=== PATIENT | female | born 1975 | race Caucasian/White ===

== ENCOUNTER 2023-04-13 16:08 | Emergency (ER) | payer BC, SELFPAY ==
[2023-04-13 16:13] VITALS: BP 116/74
[2023-04-13 16:29] LABS: % Basophils 0.5 % (0-2); % Immature Granulocytes 0.2 % (0-0.5); % Lymphocytes 36.3 % (20.5-51.1); % Monocytes 9.3 % (1.7-9.3); % Neutrophils 51.7 % (42.2-75.2); Absolute Basophils 0.1 10^3/uL (0-0.2); Absolute Eosinophils 0.2 10^3/uL (0-0.7); Absolute Lymphocytes 3.4 10^3/uL (1.2-3.4); Absolute Monocytes 0.9 10^3/uL (0.1-0.6); Absolute Neutrophils 4.8 10^3/uL (1.4-6.5); Hematocrit 34.9 % (37.0-47.0); Hemoglobin 11.6 g/dL (12.0-16.0); Mean Corp Hgb Conc. 33.2 g/dL (33.0-37.0); Mean Corpuscular Hgb 28.6 pg (27.0-31.0); Mean Platelet Volume 10.3 fL (7.4-10.4); Nucleated Red Blood Cells % 0 %; Platelet Count 249 10^3/uL (130-400); Red Blood Cell Count 4.06 10^6/uL (4.20-5.40); Red Cell Dist. Width 13.8 % (11.5-14.5); White Blood Cell Count 9.4 10^3/uL (4.8-10.8)
[2023-04-13 16:47] LABS: ALT (SGPT) 16 U/L (0-35); AST (SGOT) 23 U/L (14-36); Albumin 3.7 g/dl (3.5-5.0); Alkaline Phosphatase 59 U/L (38-126); Blood Urea Nitrogen 17 mg/dl (7-17); Calcium 9.4 mg/dl (8.4-10.2); Carbon Dioxide 27 mmol/L (22-30); Chloride 101 mmol/L (98-107); Glucose 96 mg/dl (70-99); Potassium 4.3 mmol/L (3.5-5.1); Sodium 134 mmol/L (135-145); Total Bilirubin 0.3 mg/dl (0.2-1.3); Total Protein 6.7 g/dl (6.3-8.2); eGFR > 60.00
--- NOTE | 2023-04-13 18:39 | ED.GENMED ---
History of Present Illness
General
Chief Complaint: Dizziness
Time Seen by Provider: 04/13/23 18:30
Travel History
Have you had any contact with someone who has COVID-19?: No
Do you have any symptoms of coronavirus? Fever > 100 degrees, chills, cough, shortness of breath, sore throat, loss of taste or smell, muscle aches, or headache?: No
History of Present Illness
History of Present Illness:
47-year-old female with history of anxiety presents to the emergency department for evaluation intermittent dizziness occurring over the course of today. Patient notes that she is undergoing a lot of stressors including her father being placed on
hospice care. She states she has been neglecting self-care and has not been eating or drinking much recently. Noted blood pressures with a automatic wrist cuff in the 70s and 80s earlier today associated with mild dizziness. Denies any syncope,
vision changes, chest pain, or shortness of breath. Symptoms have since resolved. She did increase her home oral fluid intake. Does not take any antihypertensives
Review of Systems
Review of Systems
Allergies reviewed?: Yes
All Other Systems: ROS reviewed and negative except as documented in HPI and ROS
Phy Exam
Physical Exam
Physical Exam:
GEN: Well appearing, NAD, WDWN
HEENT: Oral mucosa moist, no scleral icterus
Cardiac: Regular rate and rhythm, no murmurs
Lung: No respiratory distress, no tachypnea
MSK: No gross deformity or injuries
Skin: Good color, no pallor or jaundice, no rashes
Neuro: AO x3, moves all extremities freely
Psych: Calm, cooperative
Course
Orders/Labs/Results
Orders:
Orders
04/13/23 16:21
CMP [Comprehensive Metabolic Panel] Urgent
Complete Blood Count/With Diff Urgent
Abnormal Lab Results
04/13/23
16:21
RBC 4.06 L 10^6/uL
(4.20-5.40)
Hgb 11.6 L g/dL
(12.0-16.0)
Hct 34.9 L %
(37.0-47.0)
Absolute Monos (auto) 0.9 H 10^3/uL
(0.1-0.6)
Sodium 134 L mmol/L
(135-145)
04/13/23 16:21
04/13/23 16:21
Vital Signs
Initial and Last Documented VS:
Initial Vital Signs
Temp Pulse Resp BP Pulse Ox
98.9 F 97 20 116/74 99
04/13/23 16:13 04/13/23 16:13 04/13/23 16:13 04/13/23 16:13 04/13/23 16:13
Last Documented Vital Signs
Temp Pulse Resp BP Pulse Ox
98.9 F 97 20 100/62 99
04/13/23 16:13 04/13/23 16:13 04/13/23 16:13 04/13/23 18:55 04/13/23 16:13
MDM/Problems Addressed
MDM/Problems Addressed:
Patient with likely orthostatic hypotension on the basis of hypovolemia. She self corrected by administering p.o. fluids at home. Her labs are unremarkable and blood pressures are improved in the ER. Discussed supportive care and return parameters
*Critical Care Note
Total Time (30-74mins, 75-104mins- exclusive of procedures): Not Applicable
ED Attending Note
-
Portions of this chart may have been created with voice recognition software.� Occasional wrong word or��sound alike� substitutions may have occurred due to the inherent limitations of voice recognition software.
Discharge Plan
Departure
Patient Disposition: Home (Routine Discharge)
Date of Disposition: 04/13/23
Time of Disposition: 18:39
Patient with high blood pressure during this ER visit?: No
Discharge Problem:
Orthostatic hypotension
Instructions: Dizziness, Nonvertigo, (DC)
Interventions
Interventions:
*Risk Screen - Suicide Last Done: 04/13/23 16:13
*General Assessment Last Done: 04/13/23 16:13
*Neglect/Abuse Screening Last Done: 04/13/23 18:55
ED- Fall Risk Assessment Last Done: 04/13/23 18:55
*ED COVID-19 Vaccine History Last Done: 04/13/23 18:55
*Nursing Disposition Last Done: 04/13/23 18:55
Discharge Date and Time
Discharge Date/Time: 04/13/23 18:55
--- NOTE | 2023-04-13 18:40 | EDRN ---
Pt came up to me asking to leave. Pt stated to me she was feeling all better and wished to go. This RN informed pt she would be in to see her when done w/ present pt she was caring for. Pt agreed and returned to her room.
[2023-04-13 18:55] VITALS: BP 100/62
--- NOTE | 2023-04-13 18:55 | EDRN ---
This RN did not see nor assess this pt. Pt was seen and discharged solely by Jama CONN.
== END 2023-04-13 18:55 | disposition home or self-care (01) ==
LOC: EMR 16:08
PROVIDERS: EMERGENCY PHYSICIAN Emergency Medicine
DX: I95.1 Orthostatic hypotension (principal); E86.1 Hypovolemia
CPT/HCPCS: 99283; 80053; 85025

== ENCOUNTER 2024-11-07 07:59 | Emergency (ER) | payer BC, SELFPAY ==
[2024-11-07 08:06] VITALS: BP 100/72
[2024-11-07 08:38] VITALS: BMI 23.0
--- NOTE | 2024-11-07 08:39 | ED.GENMED ---
History of Present Illness
General
Chief Complaint: Abdominal Pain
Source: patient
Exam Limitations: none
Time Seen by Provider: 11/07/24 08:29
History of Present Illness
History of Present Illness:
49yoF with a history of ADHD presenting for evaluation of abdominal pain. Patient reports a sharp pain in her left lower quadrant that began abruptly around 5:30 AM this morning after urinating. She describes the pain as feeling like 'the worst
period cramps imaginable.' Pain radiates to the L lower back region. Pain has been constant since it began and nothing seems to make it better or worse. She vomited 2x this morning. Her last bowel movement was 2 days ago which is typical for
her. She denies any fevers or urinary symptoms. No previous abdominal surgeries. She still menstruates but her cycles have been irregular. LMP was 8 weeks ago. Of note, patient started Zepbound 4 months ago for weight loss.
Phy Exam
Physical Exam
Physical Exam:
Appears uncomfortable, non-toxic
General Physical Exam
General Presentation: well appearing
General age: appears stated age
General Skin: warm and dry
General Habitus: normal
General Mental: alert
ENT Exam
ENT Exam: normocephalic
Cardiovascular Exam
Cardiovascular Exam: regular rate/rhythm
Pulmonary Exam
Pulmonary Exam: lungs clear, no respiratory distress, no rales, no crackles, no rhonchi and no wheezing
Gastrointestinal Exam
Gastrointestinal Exam: non tender, soft, non distended, no cva tenderness and other (Abdomen soft, non-distended. No reproducible abdominal or CVA tenderness)
Neurological Exam
Neurological Exam: alert
[place] Coma Scale
Eye Opening: Spontaneous
Verbal Response: Oriented
Motor Response: Obeys Commands
GCS Total Score: 15
Skin Exam
Skin Exam: normal color and warm/dry
Course
Orders/Labs/Results
Orders:
Orders
11/07/24 08:39
0.9% Sodium Chloride 1000 ml [Nss] 1,000 ml IV BOLUS
Ketorolac [Toradol] 15 mg IV NOW STA
Ondansetron Injectable [Zofran] 4 mg IV NOW STA
11/07/24 08:40
CT Abd/pelvis W Iv Cont Urgent
Comment:
Reason For Exam: LLQ pain, L flank pain
Test Result ONCE
11/07/24 09:00
Complete Blood Count/With Diff Urgent
Comprehensive Metabolic Panel Urgent
HCG, Serum Qualitative Screen Urgent
Lipase Urgent
Urinalysis Reflex To Culture Urgent
Date Specimen was Collected: 11/07/24
Time Specimen was Collected: 08:52
Urine Microscopic Reflex Cult Urgent
Urine Culture Urgent
PURNIMA Source: U
Specimen Description:
Date Specimen was Collected: 11/07/24
Time Specimen was Collected: 08:52
Abnormal Lab Results
11/07/24
09:00
MPV 11.8 H fL
(7.4-10.4)
Absolute Neuts (auto) 8.7 H 10^3/uL
(1.4-6.5)
Neutrophils % 83.1 H %
(42.2-75.2)
Lymphocytes % 11.8 L %
(20.5-51.1)
Glucose 153 H mg/dl
(70-99)
Urine Ketones 2+ A
(Negative)
Ur Occult Blood Reflex 4+ A
(Negative)
Urine Nitrite (Reflex) Positive A
(Negative)
Leukocyte Esterase Rfl 1+ A
(Negative)
Urine RBC >100 A /HPF
(0-2)
Urine Bacteria (Reflex) Moderate A
(Negative)
Urine Albumin (Reflex) 3+ A
(Neg - Trace)
11/07/24 09:00
11/07/24 09:00
Vital Signs
Temp: 97.5 F
Initial and Last Documented VS:
Initial Vital Signs
Pulse Resp BP Pulse Ox
71 16 100/72 98
11/07/24 08:06 11/07/24 08:06 11/07/24 08:06 11/07/24 08:06
Last Documented Vital Signs
Temp Pulse Resp BP Pulse Ox
97.5 F 95 22 98/48 100
11/07/24 08:42 11/07/24 10:00 11/07/24 10:00 11/07/24 10:00 11/07/24 10:00
MDM/Problems Addressed
Differential Diagnosis Includes:
49yoF here with LLQ pain that began abruptly this morning. Radiates to the L lower back. Associated with n/v. VSS. She appears uncomfortable on exam but is non-toxic. No reproducible abdominal tenderness. Differential diagnosis includes but is not
limited to: kidney stone, UTI, pyelonephritis, ovarian cyst, ovarian torsion, diverticulitis
Initial ED plan: Check abdominal labs, UA, and CT abdomen. IV Toradol, Zofran, and fluid bolus for symptoms.
*Pulse Oximetry
SaO2: 98
Oxygen Mode of Delivery: Room air
Patient hypoxic: no
*Critical Care Note
Total Time (30-74mins, 75-104mins- exclusive of procedures): Not Applicable
Update Note
Update Note:
CT shows a 1.2 mm proximal left ureteral stone. Labs overall unremarkable including normal renal function. UA is nitrite positive but only 0-2 WBCs on microscopic analysis although moderate bacteria present. She is afebrile and white count is
normal. Pain is controlled on reassessment. Incidental pancreatic lesions also seen on CT for which outpatient MRI is recommended. Patient was given a copy of her CT scan results and advised to follow-up with her PCP regarding her incidental
findings. Supportive care discussed including hydration, urine straining, Flomax. Will cover with cefdinir given equivocal UA. Prescriptions also given for Zofran and oxycodone. Patient instructed to call urology today to schedule a follow-up
appointment. Strict ED return precautions reviewed. Patient in agreement plan and was discharged in stable condition.
ED Attending Note
-
Portions of this chart may have been created with voice recognition software.� Occasional wrong word or��sound alike� substitutions may have occurred due to the inherent limitations of voice recognition software.
Discharge Plan
Departure
Patient Disposition: Home (Routine Discharge)
Date of Disposition: 11/07/24
Time of Disposition: 11:30
Patient with high blood pressure during this ER visit?: No
Discharge Problem:
Calculus of proximal left ureter, Lesion of pancreas
Instructions: Kidney Stones (DC)
Prescriptions:
New
ondansetron 4 mg tablet,disintegrating
4 mg PO Q6H PRN (Reason: nausea and vomiting) Qty: 20 0RF
tamsulosin [Flomax] 0.4 mg capsule
0.4 mg PO HS Qty: 7 0RF
cefdinir 300 mg capsule
300 mg PO BID Qty: 14 0RF
oxycodone 5 mg tablet
5 mg PO Q6H PRN (Reason: Pain) Qty: 12 0RF
Referrals:
Dar Nieves MD [Active, Urology]
NONE,* [Family Provider, Internal Medicine]
Activity Restrictions/Additional Instructions:
Take cefdinir (antibiotic) as prescribed. Take Flomax and strain your urine until stone has passed. Drink plenty of fluids and hydrate.
Take Tylenol 650mg and ibuprofen 600mg every 6 hours as needed for pain. Take oxycodone only as needed for severe breakthrough pain.
Please call today to schedule a follow-up appointment with urology.
Return to the ER with any new or worsening symptoms including uncontrolled pain or fevers.
Interventions
Interventions:
*Risk Screen - Suicide Last Done: 11/07/24 08:06
*General Assessment Last Done: 11/07/24 08:38
*Neglect/Abuse Screening Last Done: 11/07/24 08:06
*ED- Fall Risk Assessment Last Done: 11/07/24 08:38
*ED COVID-19 Vaccine History Last Done: 11/07/24 08:38
OL-Cafguw-Xzjexcolcr Assessment Last Done: 11/07/24 08:38
Discharge Date and Time
Print Language: KAZAKH
[2024-11-07 08:45] VITALS: BP 113/63
[2024-11-07] MEDS: TORADOL 15 MG IV (08:56)
[2024-11-07] MEDS: ZOFRAN 4 MG IV (08:57)
[2024-11-07] MEDS: NSS 1000 IV (08:58)
[2024-11-07 09:00] VITALS: BP 100/55
[2024-11-07 09:21] LABS: Hematocrit 40.4 % (37.0-47.0); Hemoglobin 13.5 g/dL (12.0-16.0); Mean Corp Hgb Conc. 33.4 g/dL (33.0-37.0); Mean Corpuscular Volume 90.6 fL (81.0-99.0); Nucleated Red Blood Cells % 0 %; Platelet Count 241 10^3/uL (130-400); Red Cell Dist. Width 13.1 % (11.5-14.5)
[2024-11-07 09:30] LABS: HCG, Serum Qualitative Screen Negative
[2024-11-07 09:31] LABS: ALT (SGPT) 22 U/L (0-35); AST (SGOT) 23 U/L (14-36); Albumin 4.2 g/dl (3.5-5.0); Alkaline Phosphatase 57 U/L (38-126); Blood Urea Nitrogen 11 mg/dl (7-17); Calcium 9.3 mg/dl (8.4-10.2); Carbon Dioxide 23 mmol/L (22-30); Chloride 107 mmol/L (98-107); Estimated Creatinine Clearance 76 ml/min; Glucose 153 mg/dl (70-99); Lipase 244 U/L (23-300); Potassium 4.3 mmol/L (3.5-5.1); Sodium 139 mmol/L (135-145); Total Protein 6.6 g/dl (6.3-8.2); eGFR > 60.00
[2024-11-07 09:44] LABS: Urine Character Cloudy (Clear)
[2024-11-07 10:00] VITALS: BP 98/48
[2024-11-07 10:11] LABS: Urine Red Blood Cell >100 /HPF (0-2); Urine White Cell 0-2 /HPF (0-5)
[2024-11-07 11:00] VITALS: BP 97/61
--- NOTE | 2024-11-07 12:05 | EDRN ---
Reviewed discharge instructions with patient. Verbalized understanding. Ambulated with steady gait to the lobby.
[2024-11-07 12:45] VITALS: BP 98/52
== END 2024-11-07 12:10 | disposition home or self-care (01) ==
LOC: EMR 07:59
PROVIDERS: Physician Assistant; EMERGENCY PHYSICIAN Emergency Medicine
DX: N20.1 Calculus of ureter (principal); K86.9 Disease of pancreas, unspecified; R11.10 Vomiting, unspecified
CPT/HCPCS: 96374; 96375; 99284; 74177; 80053; 81003; 81015; 83690; 84703; 85025; 87086; Q9967

== ENCOUNTER 2024-11-23 10:43 | Emergency (ER) | payer BC, SELFPAY ==
[2024-11-23 10:48] VITALS: BP 114/65
[2024-11-23 11:05] LABS: Urine Character Slightly Cloudy (Clear)
[2024-11-23 11:06] LABS: Hematocrit 38.2 % (37.0-47.0); Hemoglobin 12.7 g/dL (12.0-16.0); Mean Corp Hgb Conc. 33.2 g/dL (33.0-37.0); Mean Corpuscular Volume 91.6 fL (81.0-99.0); Nucleated Red Blood Cells % 0 %; Platelet Count 241 10^3/uL (130-400); Red Cell Dist. Width 13.2 % (11.5-14.5)
[2024-11-23 11:17] LABS: Urine Red Blood Cell 26-30 /HPF (0-2)
[2024-11-23 11:21] LABS: ALT (SGPT) 15 U/L (0-35); AST (SGOT) 21 U/L (14-36); Albumin 4.2 g/dl (3.5-5.0); Alkaline Phosphatase 52 U/L (38-126); Blood Urea Nitrogen 14 mg/dl (7-17); Calcium 9.1 mg/dl (8.4-10.2); Carbon Dioxide 24 mmol/L (22-30); Chloride 105 mmol/L (98-107); Glucose 93 mg/dl (70-99); Potassium 4.2 mmol/L (3.5-5.1); Sodium 135 mmol/L (135-145); Total Protein 6.8 g/dl (6.3-8.2); eGFR > 60.00
--- NOTE | 2024-11-23 13:08 | ED.GENMED ---
History of Present Illness
General
Chief Complaint: Urinary Symptoms
Source: patient
Exam Limitations: none
Time Seen by Provider: 11/23/24 12:53
Nursing documentation reviewed up to this point in time: agreed with
History of Present Illness
History of Present Illness:
Patient is a 49-year-old female presents to the ER for evaluation. Patient was seen here November 07 diagnosed with a 1.2 mm proximal left ureteral stone. in addition there was a nonobstructing 1.5 mm calculus in the lower pole of the left
kidney. she saw DR Nieves of urology and did a 24-hour urine and is waiting for the results. She has been feeling okay however this morning was awoken at 530 this morning due to left-sided flank and abdominal pain. She also has had issues
with urinating. She feels that she cannot urinate normally since pain started this morning. She did take an oxycodone this morning as well as Flomax and Zofran.
Phy Exam
General Physical Exam
General Presentation: no apparent distress
General age: appears stated age
General Skin: warm and dry
General Habitus: normal
General Mental: alert
General Hydration: appears well hydrated
Gastrointestinal Exam
Gastrointestinal Exam: non tender and soft
Neurological Exam
Neurological Exam: alert and oriented x3
Musculoskeletal Exam
Musculoskeletal Exam: full ROM
Skin Exam
Skin Exam: normal color and warm/dry
Psychiatric Exam
Psychiatric Exam: normal mood/affect
Course
Orders/Labs/Results
Orders:
Orders
11/23/24 10:54
Complete Blood Count/With Diff Urgent
Comprehensive Metabolic Panel Urgent
11/23/24 10:58
Urinalysis Reflex To Culture Urgent
Date Specimen was Collected: 11/23/24
Time Specimen was Collected: 10:50
Urine Microscopic Reflex Cult Urgent
Urine Culture Urgent
PURNIMA Source: U
Specimen Description:
Date Specimen was Collected: 11/23/24
Time Specimen was Collected: 10:50
11/23/24 13:15
Bladder Scan- Treatment ONCE
Abnormal Lab Results
11/23/24 11/23/24
10:54 10:58
WBC 11.2 H 10^3/uL
(4.8-10.8)
RBC 4.17 L 10^6/uL
(4.20-5.40)
MPV 10.9 H fL
(7.4-10.4)
Abs Immat Gran (auto) 0.1 H 10^3/uL
(0-0.05)
Absolute Neuts (auto) 8.2 H 10^3/uL
(1.4-6.5)
Absolute Monos (auto) 0.9 H 10^3/uL
(0.1-0.6)
Lymphocytes % 17.3 L %
(20.5-51.1)
Urine Ketones 1+ A
(Negative)
Ur Occult Blood Reflex 4+ A
(Negative)
Leukocyte Esterase Rfl 1+ A
(Negative)
Urine RBC 26-30 A /HPF
(0-2)
Urine Bacteria (Reflex) Few A
(Negative)
Urine Albumin (Reflex) 2+ A
(Neg - Trace)
11/23/24 10:54
11/23/24 10:54
Vital Signs
Initial and Last Documented VS:
Initial Vital Signs
Temp Pulse Resp BP Pulse Ox
98.5 F 113 18 114/65 98
11/23/24 10:48 11/23/24 10:48 11/23/24 10:48 11/23/24 10:48 11/23/24 10:48
Last Documented Vital Signs
Temp Pulse Resp BP Pulse Ox
98.5 F 113 18 114/65 98
11/23/24 10:48 11/23/24 10:48 11/23/24 10:48 11/23/24 10:48 11/23/24 13:10
MDM/Problems Addressed
Differential Diagnosis Includes:
Not limited to renal colic
MDM/Problems Addressed:
49 female presented with left flank pain difficulty urinating that started again at 5 AM this morning. She was recently here November 07 diagnosed a 1.2 mm calculus at the proximal ureter with mild hydro. She has since seen urology has been for
24-hour urine test. On exam she is awake alert no acute distress no fevers. She is afebrile here. Bladder scan was done at bedside patient is not retaining urine. White count very minimally elevated 11.2 patient denies any fevers and is
afebrile. Urinalysis does not appear infected. I did review prior culture from previous ER visit November 07. That time she was placed on cefdinir for an equivocal urine however urine culture was negative with no growth. As reviewed with
urology will hold off on antibiotics. As discussed with urology patient does not require additional imaging this is likely the passage of her small kidney stone. She is very well-appearing and stable for discharge home. She does have Flomax and
pain medication as needed
*Pulse Oximetry
SaO2: 98
Oxygen Mode of Delivery: Room air
Patient hypoxic: no
*Critical Care Note
Total Time (30-74mins, 75-104mins- exclusive of procedures): Not Applicable
Data Reviewed
Review of Other/Old Records Reveals: Labs, Radiology Studies and Other (Previous ER visit)
Source: patient
Patient Management
Discussion with other providers: Special Education Paraprofessional (Urology Dr. Campos)
ED Attending Note
-
Portions of this chart may have been created with voice recognition software.� Occasional wrong word or��sound alike� substitutions may have occurred due to the inherent limitations of voice recognition software.
Discharge Plan
Departure
Patient Disposition: Home (Routine Discharge)
Date of Disposition: 11/23/24
Time of Disposition: 15:09
Patient with high blood pressure during this ER visit?: No
Condition: Fair
Covid-19: Not Applicable
Discharge Problem:
Renal colic
Instructions: Kidney stones in adults, Flank pain - ED (DC)
Prescriptions:
No Action
ondansetron 4 mg tablet,disintegrating
4 mg PO Q6H PRN (Reason: nausea and vomiting) Qty: 20 0RF
tamsulosin [Flomax] 0.4 mg capsule
0.4 mg PO HS Qty: 7 0RF
cefdinir 300 mg capsule
300 mg PO BID Qty: 14 0RF
oxycodone 5 mg tablet
5 mg PO Q6H PRN (Reason: Pain) Qty: 12 0RF
Referrals:
Bharat Campos MD [Active, Urology]
NONE,* [Family Provider, Internal Medicine]
Activity Restrictions/Additional Instructions:
As discussed continue Flomax daily along with your pain medication as needed. Call urology for an appointment as directed. Return if any worsening of symptoms of increasing pain nausea vomiting fever chills
Interventions
Interventions:
*Risk Screen - Suicide Last Done: 11/23/24 10:48
*General Assessment Last Done: 11/23/24 10:48
*Neglect/Abuse Screening Last Done: 11/23/24 10:48
*ED- Fall Risk Assessment Last Done: 11/23/24 10:48
*ED COVID-19 Vaccine History Last Done: 11/23/24 10:48
Discharge Date and Time
Print Language: CHINESE
[2024-11-23 15:15] VITALS: BP 118/72
== END 2024-11-23 15:15 | disposition home or self-care (01) ==
LOC: EMR 10:43
PROVIDERS: Emergency Medicine; EMERGENCY PHYSICIAN Emergency Medicine
DX: N23 Unspecified renal colic (principal); N20.0 Calculus of kidney
CPT/HCPCS: 99283; 80053; 81003; 81015; 85025; 87086

== ENCOUNTER 2025-01-18 06:23 | Day surgery (SDC) | payer BC, SELFPAY | END 2025-01-18 15:48 | disposition home or self-care (01) | LOC: GI 06:23 | PROVIDERS: ATTENDING PHYSICIAN Internal Medicine; FAMILY PHYSICIAN Nurse Practitioner Adult Health | DX: Z12.11 Encounter for screening for malignant neoplasm of colon (principal); R19.5 Other fecal abnormalities; K64.8 Other hemorrhoids; D12.5 Benign neoplasm of sigmoid colon | CPT/HCPCS: 45390; 88305 ==

== ENCOUNTER → 2025-01-25 19:00 | Outpatient (REF) | payer BC, SELFPAY | LOC: WDC 19:00 | PROVIDERS: ATTENDING PHYSICIAN Nurse Practitioner Adult Health | DX: Z12.31 Encounter for screening mammogram for malignant neoplasm of breast (principal) | CPT/HCPCS: 77063; 77067 ==